=== PATIENT | male | born 1950 | race Caucasian/White ===

== ENCOUNTER 2018-01-03 06:39 | Day surgery (SDC) | payer OTHER ==
[~2018-01-03] VITALS: Ht 177.8 cm; Wt 86.3 kg
[~2018-01-03 06:39] MED LIST: AMPHETAMINE SALTS; ASPI325 PO; ATOR40TA PO; BENZ2 PO; CITA20 PO; FERR325 PO; FINA5 PO; GEMF600 PO; HYDACE10B PO; NIAC500 PO; ONDA8ODT MM; RISP3 PO
== END 2018-01-03 09:19 | disposition home or self-care (01) ==
LOC: ORSCSDS 06:39
PROVIDERS: Internal Medicine Gastroenterology
PROC: 0DBL8ZX Excision of Transverse Colon, Via Natural or Artificial Opening Endoscopic, Diagnostic (ICD-10-PCS; principal; 2018-01-03 08:00)
DX: Z12.11 Encounter for screening for malignant neoplasm of colon (principal); D12.3 Benign neoplasm of transverse colon; K64.8 Other hemorrhoids; K57.30 Diverticulosis of large intestine without perforation or abscess without bleeding; Z85.038 Personal history of other malignant neoplasm of large intestine; Z86.010 Personal history of colon polyps; E11.9 Type 2 diabetes mellitus without complications; E78.5 Hyperlipidemia, unspecified; C91.10 Chronic lymphocytic leukemia of B-cell type not having achieved remission; Z87.891 Personal history of nicotine dependence; Z79.82 Long term (current) use of aspirin; Z79.899 Other long term (current) drug therapy
CPT/HCPCS: 82947; 88305; J0330; J1980; J2405

== ENCOUNTER → 2018-05-09 | Outpatient (CLI) | payer OTHER | END | disposition home or self-care (01) | LOC: LAB EV 13:45 → LAB SHORT 13:45 | DX: G89.4 Chronic pain syndrome (principal); Z79.899 Other long term (current) drug therapy | CPT/HCPCS: G0480 ==

== ENCOUNTER 2019-10-07 11:27 | Day surgery (SDC) | payer OTHER ==
[~2019-10-07] VITALS: Ht 177.8 cm; Wt 86.6 kg
--- NOTE | 2019-10-07 12:25 | NUR ---
10/07/19 1225 Adelaida Gillette PT ASSISTED TO RESTROOM
== END 2019-10-07 13:28 | disposition home or self-care (01) ==
LOC: ORSCSDS 11:27
PROVIDERS: Internal Medicine Gastroenterology
PROC: 0DJD8ZZ Inspection of Lower Intestinal Tract, Via Natural or Artificial Opening Endoscopic (ICD-10-PCS; principal; 2019-10-07 12:45)
DX: Z12.11 Encounter for screening for malignant neoplasm of colon (principal); Z86.010 Personal history of colon polyps; Z85.038 Personal history of other malignant neoplasm of large intestine; K57.30 Diverticulosis of large intestine without perforation or abscess without bleeding; K64.8 Other hemorrhoids; E11.9 Type 2 diabetes mellitus without complications; E78.5 Hyperlipidemia, unspecified; J45.909 Unspecified asthma, uncomplicated; F32.9 Major depressive disorder, single episode, unspecified; Z87.891 Personal history of nicotine dependence; Z79.82 Long term (current) use of aspirin; Z79.899 Other long term (current) drug therapy
CPT/HCPCS: 82947; J2704; J7120

== ENCOUNTER → 2021-03-01 | Outpatient (CLI) | payer OTHER | END | disposition home or self-care (01) | LOC: LAB SHORT 12:25 | DX: C44.619 Basal cell carcinoma of skin of left upper limb, including shoulder (principal); D48.5 Neoplasm of uncertain behavior of skin | CPT/HCPCS: 88305 ==

== ENCOUNTER 2021-08-15 09:28 | Day surgery (SDC) | payer OTHER ==
--- NOTE | 2021-08-15 11:19 | NUR ---
Dressing to procedure site clean, dry, intact with no visible drainage, swelling, erythema or bruising noted.PT LYING ON RIGHT SIDE, PROVIDED COMFORTABLE POSITION AND WARM BLANKETS. PT HAS TORN ROTATOR CUFF ON RIGHT SIDE. PROVIDED REPOSTIONING FOR COMFORT. PT ATE AND DRANK WITHOUT DIFFICULTY.
== END 2021-08-15 22:59 | disposition home or self-care (01) ==
LOC: CT 09:28
DX: C78.7 Secondary malignant neoplasm of liver and intrahepatic bile duct (principal); C80.1 Malignant (primary) neoplasm, unspecified; C91.10 Chronic lymphocytic leukemia of B-cell type not having achieved remission; E11.9 Type 2 diabetes mellitus without complications; E78.2 Mixed hyperlipidemia; F20.81 Schizophreniform disorder; K21.9 Gastro-esophageal reflux disease without esophagitis; N40.1 Benign prostatic hyperplasia with lower urinary tract symptoms; N13.8 Other obstructive and reflux uropathy; Z87.891 Personal history of nicotine dependence; Z85.038 Personal history of other malignant neoplasm of large intestine; Z79.82 Long term (current) use of aspirin
CPT/HCPCS: 47000; 77012

== ENCOUNTER 2021-08-25 08:09 | Day surgery (SDC) | payer OTHER ==
[~2021-08-25] VITALS: Ht 177.8 cm; Wt 84.4 kg
--- NOTE | 2021-08-25 15:23 | NUR ---
08/25/21 1523 YULISSA RAMIREZ PLACEMENT CONFIRMED BY DR. RINCON.
== END 2021-08-25 12:45 | disposition home or self-care (01) ==
LOC: ORSCSDS 08:09
PROVIDERS: Surgery
PROC: B543ZZA Ultrasonography of Right Jugular Veins, Guidance (ICD-10-PCS; principal; 2021-08-25 10:00)
PROC: 05HM33Z Insertion of Infusion Device into Right Internal Jugular Vein, Percutaneous Approach (ICD-10-PCS; principal; 2021-08-25 10:00)
DX: C91.11 Chronic lymphocytic leukemia of B-cell type in remission (principal); I10 Essential (primary) hypertension; E11.9 Type 2 diabetes mellitus without complications; E78.5 Hyperlipidemia, unspecified; Z87.891 Personal history of nicotine dependence; J45.909 Unspecified asthma, uncomplicated; Z85.038 Personal history of other malignant neoplasm of large intestine; Z85.05 Personal history of malignant neoplasm of liver; Z85.118 Personal history of other malignant neoplasm of bronchus and lung; F20.9 Schizophrenia, unspecified; Z79.899 Other long term (current) drug therapy; Z79.84 Long term (current) use of oral hypoglycemic drugs; Z79.82 Long term (current) use of aspirin
CPT/HCPCS: 77001; 82947; C1788; J0690; J1100; J1642; J2405; J2704; J3010; J7120

== ENCOUNTER → 2021-09-06 | Outpatient (CLI) | payer OTHER | END | disposition home or self-care (01) | LOC: LAB SHORT 13:53 | DX: D48.5 Neoplasm of uncertain behavior of skin (principal) | CPT/HCPCS: 88305 ==

== ENCOUNTER → 2021-11-16 | Outpatient (CLI) | payer OTHER ==
[2021-11-17 14:10] LABS: C DIFFICILE DNA NEGATIVE (Negative)
== END | disposition home or self-care (01) ==
LOC: LAB SHORT 08:00 → LAB FUT 11-14 15:25
PROVIDERS: Registered Nurse Oncology
DX: R19.7 Diarrhea, unspecified (principal)
CPT/HCPCS: 87493

== ENCOUNTER → 2022-04-10 | Outpatient (CLI) | payer OTHER ==
[2022-04-10 12:48] LABS: BASOPHILS ABSOLUTE AUTO 0.03 K/mm3 (0.00-0.23); BASOPHILS PERCENT AUTO 0 % (0-2); Hematocrit 24.8 % (37.0-53.0); LYMPHOCYTES ABSOLUTE AUTO 0.33 K/mm3 (0.84-5.20); LYMPHOCYTES PERCENT AUTO 4 % (21-46); MONOCYTES ABSOLUTE AUTO 0.59 K/mm3 (0.16-1.47); MONOCYTES PERCENT AUTO 7 % (4-13); Mean Corpuscular HGB 33.2 pg (26.0-34.0); Mean Corpuscular HGB Conc 32.3 g/dL (31.5-36.5); Mean Corpuscular Volume 103 fL (80-100); RDW Standard Deviation 71.3 fL (35.1-46.3); Red Blood Cell Count 2.41 M/mm3 (4.30-5.90); White Blood Cell Count 8.49 K/mm3 (4.00-11.30)
[2022-04-10 13:00] LABS: Base Excess Venous -1.2 mmol/L; Bicarbonate Venous 23.3 mmol/L (24.0-30.0); PCO2 Venous 44.4 mmHg (38-42); PO2 Venous 57.5 mmHg (38-42); pH Blood Venous 7.35 (7.34-7.37)
[2022-04-10 13:03] LABS: Albumin, Blood 2.7 g/dL (3.4-5.0); Bilirubin, Total 0.8 mg/dL (0.1-1.0); Bun/Creatinine Ratio 16.8 (12.0-20.0); Creatinine, Blood 1.01 mg/dL (0.60-1.20); Globulin, Blood 2.7 g/dL (2.2-4.0); Potassium, Blood 4.1 mmol/L (3.5-5.5); Total Protein, Blood 5.4 g/dL (6.4-8.2)
[2022-04-10 13:12] LABS: EOSINOPHILS ABSOLUTE AUTO 0.01 K/mm3 (0.00-0.68); EOSINOPHILS PERCENT AUTO 0 % (0-6); IMMATURE GRAN ABSOLUTE AUTO 0.14 K/mm3 (0.00-0.10); IMMATURE GRAN PERCENT AUTO 2 % (0-1); NEUTROPHILS ABSOLUTE AUTO 7.39 K/mm3 (1.96-9.15); NEUTROPHILS PERCENT AUTO 87 % (41-73); Platelet Count 21 K/mm3 (150-400)
== END ==
LOC: LAB SHORT 12:27
PROVIDERS: Physician Assistant
DX: U07.1 COVID-19 (principal); R09.02 Hypoxemia; J12.82 Pneumonia due to coronavirus disease 2019
CPT/HCPCS: 80053; 82803; 85025

== ENCOUNTER 2022-04-11 18:09 | Inpatient (IN) | payer OTHER ==
[~2022-04-11] VITALS: Ht 177.8 cm; Wt 82.0 kg
[2022-04-11 19:28] LABS: Hematocrit 24.9 % (37.0-53.0); Hemoglobin 8.1 g/dL (13.5-17.5); Mean Corpuscular HGB 33.3 pg (26.0-34.0); Mean Corpuscular HGB Conc 32.5 g/dL (31.5-36.5); Mean Corpuscular Volume 103 fL (80-100); Mean Platelet Volume 12.3 fL (9.1-12.4); NRBC ABSOLUTE 0.02 K/mm3 (0.00-0.02); NRBC Auto 0.2 /100 WBC (0.0-0.2); RDW Coefficient Variation 18.6 % (11.7-14.2); RDW Standard Deviation 70.5 fL (35.1-46.3); Red Blood Cell Count 2.43 M/mm3 (4.30-5.90); White Blood Cell Count 11.42 K/mm3 (4.00-11.30)
[2022-04-11 19:42] LABS: Platelet Count 18 K/mm3 (150-400)
[2022-04-11 19:51] LABS: International Normalized Ratio 1.07; Prothrombin Time Results 11.2 Sec (9.7-11.5)
[2022-04-11 19:55] LABS: Albumin, Blood 2.6 g/dL (3.4-5.0); Albumin/Globulin Ratio 0.9 (0.8-1.8); Bilirubin, Total 0.7 mg/dL (0.1-1.0); Bun/Creatinine Ratio 29.5 (12.0-20.0); Calcium, Blood 8.6 mg/dL (8.5-10.1); Creatinine, Blood 0.64 mg/dL (0.60-1.20); Globulin, Blood 2.8 g/dL (2.2-4.0); Total Protein, Blood 5.4 g/dL (6.4-8.2)
[2022-04-11 20:11] LABS: BAND PERCENT MAN 10 % (0-8); BASOPHILS PERCENT MAN 0 % (0-2); EOSINOPHILS PERCENT MAN 0 % (0-6); LYMPHOCYTES ABSOLUTE MAN 0.45 K/mm3 (0.84-5.20); LYMPHOCYTES PERCENT MAN 4 % (21-46); MONOCYTES ABSOLUTE MAN 0.22 K/mm3 (0.16-1.47); MONOCYTES PERCENT MAN 2 % (4-13); NEUTROPHILS ABSOLUTE MAN 10.73 K/mm3 (1.96-9.15); SEG NEUTROPHILS PERCENT MAN 84 % (41-73); TOTAL CELLS COUNTED 100
--- NOTE | 2022-04-12 06:57 | NUR ---
SEE PAPER CHARTING FOR FURTHER PROGRESS NOTES DURING DOWNTIME
[2022-04-12 07:34] LABS: Albumin, Blood 2.5 g/dL (3.4-5.0); Bilirubin, Total 0.5 mg/dL (0.1-1.0); Bun/Creatinine Ratio 28.4 (12.0-20.0); Calcium, Blood 8.2 mg/dL (8.5-10.1); Creatinine, Blood 0.7 mg/dL (0.60-1.20); Globulin, Blood 2.4 g/dL (2.2-4.0); Potassium, Blood 4.3 mmol/L (3.5-5.5); Total Protein, Blood 4.9 g/dL (6.4-8.2)
[2022-04-12 07:44] LABS: BASOPHILS ABSOLUTE AUTO 0.02 K/mm3 (0.00-0.23); BASOPHILS PERCENT AUTO 0 % (0-2); Hematocrit 23.3 % (37.0-53.0); Hemoglobin 7.5 g/dL (13.5-17.5); LYMPHOCYTES ABSOLUTE AUTO 0.54 K/mm3 (0.84-5.20); LYMPHOCYTES PERCENT AUTO 7 % (21-46); MONOCYTES PERCENT AUTO 4 % (4-13); Mean Corpuscular HGB 33.2 pg (26.0-34.0); Mean Corpuscular HGB Conc 32.2 g/dL (31.5-36.5); Mean Corpuscular Volume 103 fL (80-100); RDW Coefficient Variation 18.6 % (11.7-14.2); RDW Standard Deviation 69.5 fL (35.1-46.3); Red Blood Cell Count 2.26 M/mm3 (4.30-5.90); White Blood Cell Count 7.95 K/mm3 (4.00-11.30)
[2022-04-12 08:01] LABS: EOSINOPHILS PERCENT AUTO 0 % (0-6); IMMATURE GRAN ABSOLUTE AUTO 0.62 K/mm3 (0.00-0.10); IMMATURE GRAN PERCENT AUTO 8 % (0-1); NEUTROPHILS ABSOLUTE AUTO 6.47 K/mm3 (1.96-9.15); NEUTROPHILS PERCENT AUTO 81 % (41-73)
[2022-04-12 08:03] LABS: Platelet Count 13 K/mm3 (150-400)
--- NOTE | 2022-04-12 13:09 | NUR ---
Spiritual care visit conducted. Patient is lying in bed and alert. Patient's spouse, Nadine, is bedside. Pt's first words to me were, "Praise the Lord." They tell me about his extensive medical history and the current medical problems. They then talk at length about their strong [employer] kenji and some of what they have overcome in life. They tell me about their concerns given the current risks involved with chemotherapy and cancer mixed with COVID and PNA. I reinforce their helpful attitudes and practices, normalize their concerns and feelings and provide therapeutic listening, scripture reading gentle mental health counselor and prayer. Patient and Nadine respond well and show signs of an elevated mood and being encouraged in their kenji.
--- NOTE | 2022-04-12 18:04 | NUR ---
SHIFT SUMMARY PT HAS BEEN RESTING IN ROOM. PT IS CURRENTLY ON HEATED, HUMIDIFIED, HIGH FLOW OXYGEN THERAPY VIA MASK, 55L/75%. SPO2 WILL OF 88%+ WHILE AT REST. PT HAS OCCASIONAL COUGHING FITS AND THEY WILL DESATURATE TO 85% AND SLOWLY RECOVER. PT IS HAVING DIFFICULTIES EATING THEY ARE UNABLE TO TOLERATE HNC NASAL PRONGS, THEY WILL PULL THE MASK AWAY FROM THEIR FACE TO GET A BITE AND THEN REPLACE THE MASK. PT WILL BECOME MODERATELY TO VERY ANXIOUS DURING EPISODES OF DYSPNEA, THEY WILL PULL THE MASK AWAY FROM THEIR FACE IN AN ATTEMPT TO CATCH THEIR BREATH AND NEED VERBAL REMINDERS TO REPLACE THE MASK. PT HAS BEEN AN ACTIVE PARTICIPANT IN CARES. PT HAS STATED A DESIRE TO RETURN HOME AND AN UNDERSTANDING THAT THEIR CURRENT ILLNESS PREVENTS THIS. TEMPERATURE, PULSE, AND BLOOD PRESSURE STABLE. RESPIRATORY RATE RANGED 24-28, AND SPO2 RANGED 85-95%.
[2022-04-12 23:30] LABS: Source, Urine Foley catheter
[2022-04-12 23:36] LABS: Bilirubin, Urine Neg (Neg); Blood, Urine Neg (Neg); Glucose Qualitative, Urine Neg (Neg); Ketones, Urine Neg (Neg); Leukocyte Esterase, Urine Neg (Neg); Nitrite, Urine Neg (Neg); Protein, Urine Neg (Neg); Specific Gravity, Urine 1.005 (1.003-1.022); Urobilinogen, Urine NORM (Normal)
[2022-04-12 23:41] LABS: Appearance, Urine Clear (Clear); Color, Urine Pale Yellow (P-Yellow)
--- NOTE | 2022-04-13 06:00 | NUR ---
PT WITH HISTORY OF SCHIZOPHRENIA, WITH INTERMITTENT EPISODES OF ANXIETY ASSOCIATED WITH AIR HUNGER AND TENDENCY TO FIXATE ON PARTICULAR CONCERNS EVIDENCED BY ASKING THE SAME QUESTION IN SUCCESSION WHILE IN PATIENT'S ROOM. SHIFT STARTED WITH PATIENT ON AIRVO SETTINGS AT 55 LPM & FiO2 OF 75%. PT UNABLE TO TOLERATE AIRVO NASAL CANNULA, SO MASK IS IN PLACE. PT REPEATEDLY MOVES THE MASK AWAY FROM HIS FACE WHEN HE EXPERIENCES DIFFICULTY BREATHING, THEREBY EXACERBATING THE EPISODE AND RESULTING IN QUICK DROPS IN HIS Sp02 LEVEL. PT REQUIRES COACHING AND USE OF RELAXATION TECHNIQUES TO RECOVER FROM THESE EPISODES. THE NIGHT PROGRESSED, MR. SWAIN'S OXYGEN NEEDS INCREASED AND HIS AIRVO SETTINGS WERE INCREASED TO 60 LPM AND Fi02 TO 90-100% AT TIMES. CURRENT SETTINGS ARE 60 LPM / FiO2 90% WITH SpO2 AT 92%. WILL UPDATE ONCOMING RESPIRATORY THERAPIST OF CHANGE. DUE TO PATIENT'S OXYGEN DEMANDS INCREASING WITH MINIMAL EXERTION, A GARCIA CATHETER WAS INSTERED PER ORDER ALREADY PLACED BY THE PHYSICIAN. MR. SWAIN TOLERATED THE INSERTION WELL AND A URINE SAMPLE WAS SENT FOR URINALYSIS PER PROTOCOL. URINALYSIS SHOWED NO SIGNS OF INFECTION. FOLLOWING PLACEMENT OF THE GARCIA CATHETER AND ADMINISTRATION OF PAIN MEDICATION, PATIENT WAS ABLE TO SLEEP AND DID SO UNTIL APPROXIMATELY 05:00. ONCE AWAKER, PATIENT'S ANXIETY RETURNED. HE REPEATEDLY CALLED OUT SAYING THAT HE NEEDED HELP AND COULDN'T BREATHE. I DID NOT OBSERVER HIS BREATHING TO BE LABORED BUT HIS SpO2 WAS DECLINING AND HIS AIRVO SETTINGS HAD TO BE INCREASED FROM 60LPM/70FiO2 TO 60LPM/90FiO2 TO MAINTAIN SpO2 AT 90%.
[2022-04-13 06:16] LABS: Hematocrit 24.7 % (37.0-53.0); Hemoglobin 7.9 g/dL (13.5-17.5); Mean Corpuscular HGB 33.2 pg (26.0-34.0); Mean Corpuscular Volume 104 fL (80-100); RDW Coefficient Variation 18.6 % (11.7-14.2); RDW Standard Deviation 69.3 fL (35.1-46.3); Red Blood Cell Count 2.38 M/mm3 (4.30-5.90); White Blood Cell Count 4.68 K/mm3 (4.00-11.30)
[2022-04-13 06:23] LABS: Platelet Count 12 K/mm3 (150-400)
[2022-04-13 06:33] LABS: Albumin, Blood 2.8 g/dL (3.4-5.0); Albumin/Globulin Ratio 1.2 (0.8-1.8); Bilirubin, Total 0.5 mg/dL (0.1-1.0); Bun/Creatinine Ratio 25.7 (12.0-20.0); Calcium, Blood 8.5 mg/dL (8.5-10.1); Creatinine, Blood 0.78 mg/dL (0.60-1.20); Globulin, Blood 2.3 g/dL (2.2-4.0); Potassium, Blood 4.1 mmol/L (3.5-5.5); Total Protein, Blood 5.1 g/dL (6.4-8.2)
[2022-04-13 06:37] LABS: BASOPHILS PERCENT MAN 0 % (0-2); EOSINOPHILS PERCENT MAN 0 % (0-6); LYMPHOCYTES ABSOLUTE MAN 0.37 K/mm3 (0.84-5.20); LYMPHOCYTES PERCENT MAN 8 % (21-46); MONOCYTES ABSOLUTE MAN 0.09 K/mm3 (0.16-1.47); MONOCYTES PERCENT MAN 2 % (4-13); NEUTROPHILS ABSOLUTE MAN 4.21 K/mm3 (1.96-9.15); SEG NEUTROPHILS PERCENT MAN 90 % (41-73); TOTAL CELLS COUNTED 100
[2022-04-13 10:30] LABS: PCO2 Arterial 37.7 mmHg (35-45); PO2 Arterial 67.7 mmHg (80-100); pH Blood Arterial 7.42 (7.35-7.45)
--- NOTE | 2022-04-13 11:50 | NUR ---
Spiritual care visit conducted. Patient's spouse, Nadine is in the hallway outside her 's rm. Dr. Pal tenderly explains the pt's decline and the futile nature of CPR and intubation and Nadine is quite tearful. I hug Nadine after as she is emotional. She states how resolute the pt is about not wanting to be intubation and she voices her understanding of the risks vs. benefits of CPR. She also talks with Palliative Care RN Brook who further explains the topic and Nadine apperas to be at peace with a DNR status and moving patient to comfort care only if he continues to decline. She then talks about the spiritual and emotional aspect and what is comforting to her moving forward. I provide therapeutic listening, a calming presence and gentle psychosocial rehabilitation counselor. Nadine responds well and shows signs of being comforted. I will continue to remain avilable to patient and family.
--- NOTE | 2022-04-13 18:07 | NUR ---
SHIFT SUMMARY PT HAS HAD SEVERAL EPISODES OF DESATURATION. THIS AM PT HAD A COUGHING FIT THAT TRIGGERED A DESATURATION DOWN TO LOW 80%'S. PT TOOK 15-20 MINUTES TO RECOVER AND BECAME ANXIOUS. PT WOULD BECOME SHORT OF BREATH AND ANXIOUS AND REMOVE MASK CAUSING FURTHER DESATURATIONS. PT WAS MEDICATED PER ORDERS AND WAS ABLE TO RELAX AND FALL ASLEEP FOR SEVERAL HOURS. SPO2 REMAINED STABLE DURING SLEEP. PT AWOKE TO A COUGHING FIT AND DESATURATED TO THE 70%'S. PT TOOK LONGER TO RECOVER, 20-30 MINUTES. PT HAD ANOTHER EPISODE OF ANXIETY WHERE THEY REMOVED THEIR MASK AND DESATURATED. PT IS REDIRECTABLE DURING THESE EPISODES BUT REQUIRES CONSIDERABLE VERBAL INTERVENTION. HAS BEEN AT BEDSIDE FOR THE MAJORITY OF THE DAY. ALL OTHER VITAL SIGNS HAVE REMAINED STABLE.
--- NOTE | 2022-04-14 06:04 | NUR ---
SHIFT SUMMARY Patient remained A/Ox4 t/o shift. Increasingly anxious with pulling at lines/tubes and was medicated with PRN's, which allowed patient to fall asleep. This occurred again a few hours later, which appeared as air hunger with pt saying "I feel like I can't breathe", and that taking off the mask would help him feel like he could breathe. He's redirectable but shortly after does it again. Dr. Barth notified and orders were received and medicated per emar. Attempted use of Bipap, but patient was only able to tolerate for 6 minutes. On neb mask 75L and 100%, satting 85-91%, but drops as low as 52% and takes a long time to recover (upwards of 10 mins). LS dim t/o with occasional congested cough that results in coughing episodes and desats down to 54%. Reports no CP/pressure. NSR 60s on monitor. Hyperactive bowel tones. Zayas cath draining clear/yellow urine. Report that patient pulled oxygen again and desat into the 50's. Patient continued to pull at lines despite medications given, Dr. Barth notified. Soft wrist restraints ordered. Patients spouse in agreement with this decision. Patient is medicated and wrist restraints applied. Patient is resting and maintaining sats over 95% with no desaturations since.
--- NOTE | 2022-04-14 07:27 | NUR ---
Patient is lying in bed resting and spouse, Nadine, is resting in the pull out chair. I They both easily awaken when I walk into the room. I provide scripture reading and prayer to start their day and they both voice gratitude for the time and care. I will follow up on their progress later in the day.
--- NOTE | 2022-04-14 11:54 | NUR ---
PT TRANSITIONING INCREASED AGGITTATION. TRANSITION TO COMFORT CARE. PT REGQUIRING HIGH KVNG MEDICATION TO CONTROL SYMPTOMS. PT CHECING AND TIGHTENING OF LEGS AND JAW PRN ATIVEN STARTED TO PREVENT SEIZURES FROM ANOXIA. AND [facility] AT [facility] WILL CONTINUE TO MONITOR.
--- NOTE | 2022-04-14 12:42 | NUR ---
Spiritual Care (airport operations crew member shift transition) At approx. 11:40 was introduced to spouse by Chaplain Bhat. This airport operations crew member picking up EOL spiritual care. Pt. is resting on Comfort Care and is non-responsive. Spouse welcomes my visit. At spouses request scripture is read, and facilitate a Life Review. Spouse displays evidence of finding comfort and hope in the scriptures. Spouse is unsettled by initial diagnosis of Pt. by ED, listen empthetically with a calming presence. Spouse displays evidence of resolved frustration. Brook for Palliative Care came to check on a beeping drip bag and releived this airport operations crew member. Upon leaving the room, this airport operations crew member met the Pts. twin brother and spouse. Rapport was built, and pastoral care was given. Pts. brother verbalized gratitude for the spiritual care visit, and returned to room to visit Pt. This airport operations crew member will remain available to Spouse and family.
--- NOTE | 2022-04-14 16:52 | NUR ---
SHIFT SUMMARY UPON MEETING PT HE SEEMED VERY EXHAUSTED BUT STILL THANKFUL AND COOPERATIVE W CARLOS, AT BEDSIDE. DURING BREAKFAST HE STARTED TO FEEL ANXIOUS AND SOB TO WHERE HE WAS PULLING OFF HIS MASK BEGGING FOR HELP, DESAT TO THE 50'S. I PUT THE MASK BACK ON AND THE AGREED TO WRIST RESTRAINTS WHILE SHE STEPPED OUT TO PREVENT HIM PULLING OFF MASK. PT BECAME MORE AGGRAVATED EVEN AFTER PRN PER EMAR. HE WOULD MANAGE TO WIGGLE OFF HIS MASK W HIS FACE AND STATED HE DID NOT WANT ANY MORE LIFESAVING MEASURES BC HE WAS TOO MISERABLE AND COULDN'T BREATHE. AFTER THE WAS CALLED BACK, THEY AGREED TO MOVE TO COMFORT CARE AND HE HAS BEEN MEDICATED TO COMFORT W ATIVAN, ROXONOL, MORPHINE, AND HALDOL. HIS SATS HAVE REMAINED IN THE 50'S-60'S FOR THE REMAINDER OF THE DAY. FAMILY HAS BEEN CALLED TO VISIT THROUGHOUT THE DAY. WILL CONTINUE TO MONITOR AND PROVIDE THERAPEUTIC CARE FOR THE PATIENT AND THE FAMILY.
--- NOTE | 2022-04-14 18:41 | NUR ---
Spiritual Care Visit. Pt. is on comfort care and is nonresponsive. Spouse and step daughter are present and welcome my visit. Re-establish rapport and facilitate a life review. Spouse displays appropriate balance of grief and warm memories. Step daughter displays evidence of love and grief. Pastoral financial aid counselor regarding EOL is given. Scripture is read. Pastoral prayer is given. Spouse verbalizes gratitude for the spiritual care visit.
--- NOTE | 2022-04-14 20:03 | NUR ---
pt much more comfortable review of medication and symptoms with nursing staff on night shift supervisor follow up with family.
--- NOTE | 2022-04-15 04:36 | NUR ---
PT LOOKED AND SOUNDED VERY UNCOMFORTABLE AND MOANING LOADLY. MEDICATED PER EMAR. PT SUCTIONED AND REPOSITIONED PER FAMILY.
--- NOTE | 2022-04-15 06:53 | NUR ---
SHIFT SUMMARY PT HAS BEEN MEDICATED PER ORDER. PT HAS HAD AIR HUNGER AND HAS LOOKED VERY UNCOMFORTABLE. THIS NURSE TALKED TO CHARGE NURSE REGARDING CARE FOR PT. CHARGE NURSE CONTACTED DR FLOWERS AND EMAR WAS UPDATED. COMFORT MEASURES HAVE BEEN PROVIDED TO PT. AT BEDSIDE. CONTINUE TO MONITOR.
--- NOTE | 2022-04-15 08:19 | NUR ---
WE SUCTIONED, PERFORMED MOUTH CARE/PERSONAL HYGIENE, REPOSITIONED, AND MEDICATED PER MAR. HEAD OF BED IS UP AND PILLOWS ARE UNDER ALL LIMBS. PT IS SHOWING AGONAL BREATHING AND IS CONTINUOUSLY BEING MONITORED AND MEDICATED FOR HIS COMFORT. FAMILY SUPPORT IS ALSO BEING PROVIDED.
--- NOTE | 2022-04-15 08:20 | NUR ---
AM NOTE: PATIENT NON RESPONSIVE, TO TOUCH OR VOICE. EYES CLOSED, AGONAL BREATHING. AUDIBLE SECREATIONS HEARD. COMFORT CARE ORDERS IN PLACE. SEE EMAR FOR PAIN MEDICATION ADMINISTRATION. FAMILY AT BEDSIDE THIS AM AND HAVE GONE HOME AT THIS TIME TO CLEAN UP. REPOSITIONING NEEDED. THIS RN AT BEDSIDE MONITORING PATIENT AT THIS TIME. GARCIA CATH IN PLACE DRAINING CLEAR/YELLOW URINE TO GRAVITY. ON ROOM AIR. NO TELE. MEDIPORT TO RIGHT UPPER CHEST DRAWING AND FLUSHING WELL. WILL CONTINUE TO MONITOR.
--- NOTE | 2022-04-15 09:01 | NUR ---
PATIENT TIME OF 829. THIS RNA ND SECOND RN IN ROOM TO CONFIRM. FAMILY, DR. LEWIS, AND PALLIATIVE CARE NOTIFIED. FAMILY WILL BE IN SHORTLY TO EPIC MANAGER PATIENT BELONGINGS.
--- NOTE | 2022-04-15 11:13 | NUR ---
FINAL DISCHARGE: HOME IN TO [employer] DRIVER PATIENT AT THIS TIME.
== END 2022-04-15 10:58 | DRG 871 ==
LOC: ER 18:09 → PCU 18:10
PROVIDERS: Family Medicine; Internal Medicine; Physician Assistant; ADMIT Internal Medicine
PROC: XW0DXM6 Introduction of Baricitinib into Mouth and Pharynx, External Approach, New Technology Group 6 (ICD-10-PCS; principal; 2022-04-11)
PROC: 3E03329 Introduction of Other Anti-infective into Peripheral Vein, Percutaneous Approach (ICD-10-PCS; 2022-04-11)
PROC: 3E0333Z Introduction of Anti-inflammatory into Peripheral Vein, Percutaneous Approach (ICD-10-PCS; 2022-04-11)
PROC: 5A0945A Assistance with Respiratory Ventilation, 24-96 Consecutive Hours, High Flow/Velocity Cannula (ICD-10-PCS; 2022-04-11)
PROC: 8E0ZXY6 Isolation (ICD-10-PCS; 2022-04-11)
PROC: XW033E5 Introduction of Remdesivir Anti-infective into Peripheral Vein, Percutaneous Approach, New Technology Group 5 (ICD-10-PCS; 2022-04-12)
PROC: 5A09357 Assistance with Respiratory Ventilation, Less than 24 Consecutive Hours, Continuous Positive Airway Pressure (ICD-10-PCS; 2022-04-13)
DX: A41.89 Other specified sepsis (principal); U07.1 COVID-19; J12.82 Pneumonia due to coronavirus disease 2019; J96.01 Acute respiratory failure with hypoxia; G93.41 Metabolic encephalopathy; D61.810 Antineoplastic chemotherapy induced pancytopenia; Z66 Do not resuscitate; Z51.5 Encounter for palliative care; C91.10 Chronic lymphocytic leukemia of B-cell type not having achieved remission; C78.00 Secondary malignant neoplasm of unspecified lung; C78.7 Secondary malignant neoplasm of liver and intrahepatic bile duct; C19 Malignant neoplasm of rectosigmoid junction; R65.20 Severe sepsis without septic shock; E11.8 Type 2 diabetes mellitus with unspecified complications; E78.5 Hyperlipidemia, unspecified; F32.A Depression, unspecified; T45.1X5A Adverse effect of antineoplastic and immunosuppressive drugs, initial encounter; D63.0 Anemia in neoplastic disease; D69.6 Thrombocytopenia, unspecified; N40.0 Benign prostatic hyperplasia without lower urinary tract symptoms; Z85.118 Personal history of other malignant neoplasm of bronchus and lung; Z79.82 Long term (current) use of aspirin; Z79.899 Other long term (current) drug therapy; Z88.0 Allergy status to penicillin; Z87.891 Personal history of nicotine dependence; Z80.3 Family history of malignant neoplasm of breast; Z90.49 Acquired absence of other specified parts of digestive tract; Z98.890 Other specified postprocedural states; Z92.21 Personal history of antineoplastic chemotherapy
CPT/HCPCS: 36415; 36600; 71045; 80053; 81003; 82803; 84145; 85025; 85610; 85730; 93005; 93010; 94640; 94660; 94664; 94762; 96365; 96375; 99285-25; A9270; C9399; J0248; J0696; J1100; J1170; J1630; J1940; J2060; J2270; J3360; J7040; J7050